=== PATIENT | female | born 1950 | race Caucasian/White ===

== ENCOUNTER 2020-07-01 18:35 | Observation (INO) | payer MEDICARE, OTHER ==
[~2020-07-01] VITALS: Ht 149.9 cm; Wt 89.2 kg
[~2020-07-01 18:35] MED LIST: ACET325C6 PO; ALPR0.25 PO; AMIT25TA PO; BACL-19 PO; ENOX40SY4 SQ; HYDR-3240 PO; LISI-167 PO; MERO1PIG IV; MORP10SY IV; ZONI100C29 PO; [UNRECOGNIZED DRUG - CODE] PO; [UNRECOGNIZED DRUG - OTHER]; [UNRECOGNIZED DRUG - OTHER]; [UNRECOGNIZED DRUG - OTHER]; zofran
[2020-07-01 19:18] LABS: BASOPHILS % (AUTO) 1 % (0-1); EOSINOPHILS % (AUTO) 2 % (1-7); LYMPHOCYTES % (AUTO) 15 % (22-44); MEAN CORPUSCULAR HEMOGLOBIN 24.3 pg (27.0-34.8); MEAN CORPUSCULAR HGB CONC 32.4 g/dL (32.4-35.8); MEAN PLATELET VOLUME 8.4 fL (7.4-10.4); MONOCYTES % (AUTO) 7 % (2-9); NEUTROPHILS % (AUTO) 75 % (42-75); PLATELET COUNT 399 x10^3/uL (130-400); RED BLOOD COUNT 4.82 x10^6/uL (3.82-5.3); RED CELL DISTRIBUTION WIDTH 17.2 % (9.6-15.2)
[2020-07-01 19:24] LABS: ALBUMIN 3.7 g/dL (3.4-5.0); ANION GAP 9 mmol/L (5-15); CALCIUM 8.5 mg/dL (8.5-10.1); CHLORIDE 107 mmol/L (98-107); CREATININE 0.85 mg/dL (0.55-1.02); MD NO
--- NOTE | 2020-07-01 23:40 | NUR ---
pt walked to room 15, awake and alert x4, strong hand liner checker and feet push and pull. drooping to left side of face. able to speak clearly. mild head ache. MD to bedside.
--- NOTE | 2020-07-01 23:52 | NUR ---
piv started and pt tolerated well. pt taken to ct by addiction psychiatrist. iv to left AC flushed easy, no swelling, no redness.
--- NOTE | 2020-07-02 00:02 | NUR ---
pt back from ct. connected to cr monitor. pts at bedside. call light within reach
[2020-07-02] MEDS ORDERED: ACYCLOVIR 400 MG TABLET PO ONE (01:00)
[2020-07-02] MEDS ORDERED: OMNIPAQUE 350 MG/ML, 100ML BOTTLE ONE (01:00)
[2020-07-02] MEDS ORDERED: SODIUM CHLORIDE 0.9% 1,000 ML IV SCH (01:30)
[2020-07-02] MEDS ORDERED: DOCUSATE 100 MG CAPSULE PO PRN (01:30)
--- NOTE | 2020-07-02 02:37 | NUR ---
pt a&ox4. updated to admission. pts to go home for tonight. she remains on cr monitor, and given warm blankets and a pillow for comfort. call light within reach. side rails up x2.
--- NOTE | 2020-07-02 03:35 | NUR ---
ivf started per MD order on emar. 100ml/hr of NS. pt resting comfortably, lights down. on cr monitor. no distress or complaints at this time. call light within reach.
--- NOTE | 2020-07-02 05:02 | NUR ---
pt resting comfortably, no distress at this time. on cr monitor. side rails up x2, and call haddad within reach.
--- NOTE | 2020-07-02 06:42 | NUR ---
pt sleeping comfortably, on cr monitor, and siderails up x2 in [facility]. no distress at this time.
--- NOTE | 2020-07-02 06:58 | NUR ---
report and care given to day shift RN.
--- NOTE | 2020-07-02 07:25 | NUR ---
PT ABLE TO AMBULATE TO BATHROOM STEADILY WITHOUT ASSIST.
[2020-07-02] MEDS ORDERED: ARTIFICIAL TEARS 15 DROP/ML BOTTLE LEFTEYE PRN (07:30)
[2020-07-02] MEDS ORDERED: LISINOPRIL 10 MG TABLET ONE (07:41)
[2020-07-02] MEDS ORDERED: ASPIRIN 81 MG TABLET CHEW ONE (07:41)
[2020-07-02 07:59] LABS: BASOPHILS % (AUTO) 0 % (0-1); EOSINOPHILS % (AUTO) 0 % (1-7); LYMPHOCYTES % (AUTO) 10 % (22-44); MEAN CORPUSCULAR HEMOGLOBIN 24.1 pg (27.0-34.8); MEAN CORPUSCULAR HGB CONC 32.2 g/dL (32.4-35.8); MEAN PLATELET VOLUME 8.5 fL (7.4-10.4); MONOCYTES % (AUTO) 1 % (2-9); NEUTROPHILS % (AUTO) 88 % (42-75); PLATELET COUNT 386 x10^3/uL (130-400); RED BLOOD COUNT 5.02 x10^6/uL (3.82-5.3); RED CELL DISTRIBUTION WIDTH 17.3 % (9.6-15.2)
--- NOTE | 2020-07-02 08:00 | NUR ---
PT ABLE TO DRINK WATER WITHOUT DIFFICULTY. PT COUGHING AFTER CHEWING UP ASA PILLS. PT STATED SHE AFTER CHEWING ASA, SOME WENT DOWN WRONG. PT DRINKING WATER WITHOUT PROBLEM TO EASE COUGHING.
[2020-07-02 08:02] LABS: MD NO
[2020-07-02 08:08] LABS: CHOL/HDL RATIO 3.5; LDL/HDL RATIO 2.1 (0.5-3.0)
--- NOTE | 2020-07-02 08:14 | NUR ---
REPORT GIVEN TO CHARLES SHANKAR.
[2020-07-02 08:40] VITALS: BP 142/75
[2020-07-02] MEDS ORDERED: LISINOPRIL 10 MG TABLET PO SCH (09:00)
[2020-07-02] MEDS ORDERED: ASPIRIN 81 MG TABLET CHEW PO/NG SCH (09:00)
[2020-07-02] MEDS ORDERED: GADOTERATE 10 MMOL/20 ML VIAL ONE (10:00)
[2020-07-02 10:57] LABS: MICROSCOPIC AUTO
[2020-07-02] MEDS ORDERED: ACYCLOVIR 200 MG CAPSULE PO SCH (13:00)
[2020-07-02] MEDS ORDERED: ARTIFICIAL TEARS 15 DROP/ML BOTTLE RIGHTEYE PRN (13:00)
[2020-07-02] MEDS ORDERED: ACETAMINOPHEN 325 MG TABLET PO PRN (13:00)
[2020-07-02] MEDS ORDERED: ACYCLOVIR 400 MG TABLET PO SCH (13:13)
[2020-07-02 14:31] VITALS: BP 129/79
[2020-07-02] MEDS ORDERED: FAMOTIDINE 20 MG TABLET PO PRN (15:30)
[2020-07-02] MEDS ORDERED: DEXAMETHASONE 4 MG TABLET PO SCH (16:00)
[2020-07-02] MEDS ORDERED: METH4TAB6 PO (17:13)
[2020-07-02] MEDS ORDERED: ATOR40TA78 PO (17:13)
[2020-07-02] MEDS ORDERED: ATORVASTATIN 40 MG TABLET PO SCH (21:00)
== END 2020-07-02 18:29 | disposition home or self-care (01) ==
LOC: ED 07-02 00:27 → EDIP 07-02 01:06 → INTOOBSV 07-02 01:06 → 4NE 07-02 08:37
PROVIDERS: ADMIT Family Medicine; ATTEND Family Medicine
DX: D42.0 Neoplasm of uncertain behavior of cerebral meninges (principal); G93.6 Cerebral edema; I67.1 Cerebral aneurysm, nonruptured; G52.9 Cranial nerve disorder, unspecified; R29.810 Facial weakness; R47.1 Dysarthria and anarthria; R29.818 Other symptoms and signs involving the nervous system; I10 Essential (primary) hypertension; M85.80 Other specified disorders of bone density and structure, unspecified site; K21.9 Gastro-esophageal reflux disease without esophagitis; E78.5 Hyperlipidemia, unspecified; E66.9 Obesity, unspecified; Z90.710 Acquired absence of both cervix and uterus; Z79.899 Other long term (current) drug therapy; Z93.3 Colostomy status
CPT/HCPCS: 36415; 70450; 70496; 70498; 70553; 80048; 80061; 81001; 82040; 83036; 85025; 92610; 93005; 96360; 96361; 99285; A9575; G0378; J7030; J7512; Q9967

== ENCOUNTER → 2020-08-04 | Outpatient (CLI) | payer MEDICARE, OTHER ==
[~2020-08-04] MED LIST changes: +ATOR40TA78 PO; +HYDR-1067 PO; -HYDR-3240 PO; +METH4TAB6 PO
[2020-08-04 11:50] LABS: BASOPHILS % (AUTO) 1 % (0-1); EOSINOPHILS % (AUTO) 2 % (1-7); LYMPHOCYTES % (AUTO) 22 % (22-44); MEAN CORPUSCULAR HEMOGLOBIN 24.5 pg (27.0-34.8); MEAN CORPUSCULAR HGB CONC 33.1 g/dL (32.4-35.8); MEAN PLATELET VOLUME 8.5 fL (7.4-10.4); MONOCYTES % (AUTO) 7 % (2-9); NEUTROPHILS % (AUTO) 70 % (42-75); PLATELET COUNT 399 x10^3/uL (130-400); RED BLOOD COUNT 5.01 x10^6/uL (3.82-5.3); RED CELL DISTRIBUTION WIDTH 16.3 % (9.6-15.2)
[2020-08-04 11:52] LABS: MICROSCOPIC AUTO
[2020-08-04 11:57] LABS: MD NO
[2020-08-04 12:02] LABS: ALANINE AMINOTRANSFERASE 20 U/L (12-78); ALBUMIN 4.2 g/dL (3.4-5.0); ANION GAP 4 mmol/L (5-15); CALCIUM 9.5 mg/dL (8.5-10.1); CHLORIDE 106 mmol/L (98-107); INTERNATIONAL NORMALIZED RATIO 0.98 (0.93-1.1); PROTHROMBIN TIME 10.5 Seconds (9.6-11.5)
[2020-08-04 12:04] LABS: ALKALINE PHOSPHATASE 140 U/L (45-117); BILIRUBIN,TOTAL 0.2 mg/dL (0.2-1.0); TOTAL PROTEIN 8.1 g/dL (6.4-8.2)
== END | disposition home or self-care (01) ==
LOC: STAR 09:34
PROVIDERS: ATTEND Neurological Surgery
DX: Z01.818 Encounter for other preprocedural examination (principal); D32.9 Benign neoplasm of meninges, unspecified; Z20.822 Contact with and (suspected) exposure to COVID-19
CPT/HCPCS: 71046; 80053; 81001; 85025; 85610; 85730; 87086; 87186; 87635

== ENCOUNTER → 2020-08-08 | Outpatient (CLI) | payer MEDICARE, OTHER ==
[~2020-08-08] MED LIST changes: +GADOTERATE 7.5 MMOL/15 ML VIAL ONE; +LEVE100S6 PO
== END | disposition home or self-care (01) ==
LOC: RAD 08:16
PROVIDERS: ATTEND Neurological Surgery
DX: G93.89 Other specified disorders of brain (principal); D32.9 Benign neoplasm of meninges, unspecified
CPT/HCPCS: 70552; A9575

== ENCOUNTER 2020-09-16 21:23 | Emergency (ER) | payer MEDICARE, OTHER ==
[~2020-09-16] VITALS: Ht 157.5 cm; Wt 70.7 kg
[~2020-09-16 21:23] MED LIST changes: +FAMO-79 PO; -GADOTERATE 7.5 MMOL/15 ML VIAL ONE; +LEVE500T53 PO; +OXYC-302 PO
--- NOTE | 2020-09-16 21:43 | NUR ---
Pt to ER with C/O abd pain. Pt states hx of colostmy that was removed 1yr ago. Pt thinks she has a hernia. Pt with pain to left abd. Pt c/o flank pain. Pt with no N/V. Pt denies bloody stools. States having normal BM. Pt in gown, Warm blanket given. UA provided. Will monitor.
[2020-09-16] MEDS ORDERED: OMNIPAQUE 350 MG/ML, 100ML BOTTLE ONE (21:49)
[2020-09-16] MEDS ORDERED: HYDROmorphone 1 MG/ML, 1ML INJ ONE (21:57)
[2020-09-16] MEDS ORDERED: ONDANSETRON 2MG/ML, 2ML ONE (21:57)
[2020-09-16] MEDS ORDERED: ONDANSETRON 2MG/ML, 2ML IVPush ONE (22:00)
[2020-09-16] MEDS ORDERED: HYDROmorphone 1 MG/ML, 1ML INJ IV ONE (22:00)
[2020-09-16] MEDS ORDERED: SODIUM CHLORIDE FLUSH 10ML SYR IVF ONE (22:00)
[2020-09-16 22:01] LABS: MICROSCOPIC AUTO
--- NOTE | 2020-09-16 22:11 | NUR ---
IV placed, UA sent. Blood sent. Pt medicated per order. NC placed for RA 90% after meds. 2L with pt in mid 90's. Family at bedside. Will monitor.
[2020-09-16 22:19] LABS: BASOPHILS % (AUTO) 1 % (0-1); EOSINOPHILS % (AUTO) 2 % (1-7); LYMPHOCYTES % (AUTO) 16 % (22-44); MEAN CORPUSCULAR HEMOGLOBIN 24.1 pg (27.0-34.8); MEAN CORPUSCULAR HGB CONC 33.1 g/dL (32.4-35.8); MEAN PLATELET VOLUME 8.6 fL (7.4-10.4); MONOCYTES % (AUTO) 9 % (2-9); NEUTROPHILS % (AUTO) 73 % (42-75); PLATELET COUNT 317 x10^3/uL (130-400); RED BLOOD COUNT 4.45 x10^6/uL (3.82-5.3); RED CELL DISTRIBUTION WIDTH 16.8 % (9.6-15.2)
[2020-09-16 22:20] LABS: MD NO
[2020-09-16 22:29] LABS: ALANINE AMINOTRANSFERASE 22 U/L (12-78); ALBUMIN 3.8 g/dL (3.4-5.0); ANION GAP 8 mmol/L (5-15); CALCIUM 8.6 mg/dL (8.5-10.1); CHLORIDE 106 mmol/L (98-107); CREATININE 0.59 mg/dL (0.55-1.02)
[2020-09-16 22:31] LABS: ALKALINE PHOSPHATASE 112 U/L (45-117); BILIRUBIN,TOTAL 0.2 mg/dL (0.2-1.0); TOTAL PROTEIN 7.2 g/dL (6.4-8.2)
--- NOTE | 2020-09-16 23:14 | NUR ---
Pt calm in bed. Pain improved. Pt resting comfortably in bed. Waiting on CT. Will monitor. at bedside. Call light in reach.
--- NOTE | 2020-09-16 23:16 | NUR ---
PT TO CT AT THIS TIME
[2020-09-17 00:30] VITALS: BP 133/66
--- NOTE | 2020-09-17 00:32 | NUR ---
Patient/ spouse given discharge instructions and they have confirmed that they understand the instructions. Patient ambulatory with steady gait.
== END 2020-09-17 00:37 | disposition home or self-care (01) ==
LOC: ED 23:32
DX: R10.84 Generalized abdominal pain (principal); M54.5 Low back pain; I10 Essential (primary) hypertension
CPT/HCPCS: 36415; 74177; 80053; 81001; 83690; 85025; 87086; 96374; 96375; 99285; J1170; J2405; Q9967

== ENCOUNTER → 2020-09-18 | Outpatient (CLI) | payer MEDICARE, OTHER | END | disposition home or self-care (01) | LOC: CFH 12:22 | PROVIDERS: ATTEND Physician Assistant | DX: D32.9 Benign neoplasm of meninges, unspecified (principal) | CPT/HCPCS: 70450 ==

== ENCOUNTER → 2020-12-13 | Outpatient (CLI) | payer MEDICARE, OTHER ==
[~2020-12-13] MED LIST changes: -HYDR-1067 PO; +HYDR-2214 PO; +OMNIPAQUE 350 MG/ML, 100ML BOTTLE ONE
[2020-12-13 09:30] LABS: CREATININE 0.73 mg/dL (0.55-1.02)
== END | disposition home or self-care (01) ==
LOC: RAD 08:46
PROVIDERS: ATTEND Surgery
DX: K43.2 Incisional hernia without obstruction or gangrene (principal)
CPT/HCPCS: 36415; 74177; 82565; Q9967

== ENCOUNTER 2021-02-02 09:03 | Outpatient (CLI) | payer MEDICARE, OTHER ==
[2021-02-02] MEDS ORDERED: GADOTERATE 10 MMOL/20 ML VIAL ONE (12:00)
== END 2021-02-02 23:59 | disposition home or self-care (01) ==
LOC: RAD 09:03
PROVIDERS: ATTEND Neurological Surgery
DX: D32.0 Benign neoplasm of cerebral meninges (principal); G93.0 Cerebral cysts
CPT/HCPCS: 70553; A9575

== ENCOUNTER → 2021-02-02 | Outpatient (CLI) | payer MEDICARE, OTHER ==
[~2021-02-02] MED LIST changes: -OMNIPAQUE 350 MG/ML, 100ML BOTTLE ONE
[2021-02-02 10:14] LABS: BASOPHILS % (AUTO) 1 % (0-1); EOSINOPHILS % (AUTO) 4 % (1-7); LYMPHOCYTES % (AUTO) 22 % (22-44); MEAN CORPUSCULAR HEMOGLOBIN 23.7 pg (27.0-34.8); MEAN CORPUSCULAR HGB CONC 32.6 g/dL (32.4-35.8); MEAN PLATELET VOLUME 8.8 fL (7.4-10.4); MONOCYTES % (AUTO) 7 % (2-9); NEUTROPHILS % (AUTO) 66 % (42-75); PLATELET COUNT 281 x10^3/uL (130-400); RED BLOOD COUNT 4.69 x10^6/uL (3.82-5.3); RED CELL DISTRIBUTION WIDTH 16.6 % (9.6-15.2)
[2021-02-02 10:16] LABS: MICROSCOPIC AUTO
[2021-02-02 10:24] LABS: INTERNATIONAL NORMALIZED RATIO 0.96 (0.93-1.1); PROTHROMBIN TIME 10.3 Seconds (9.6-11.5)
[2021-02-02 10:25] LABS: ALBUMIN 3.5 g/dL (3.4-5.0); ANION GAP 5 mmol/L (5-15); CALCIUM 8.8 mg/dL (8.5-10.1); CHLORIDE 108 mmol/L (98-107)
[2021-02-02 10:28] LABS: ALANINE AMINOTRANSFERASE 20 U/L (12-78); ALKALINE PHOSPHATASE 95 U/L (45-117); BILIRUBIN,TOTAL 0.3 mg/dL (0.2-1.0); CREATININE 0.83 mg/dL (0.55-1.02); TOTAL PROTEIN 7.3 g/dL (6.4-8.2)
== END | disposition home or self-care (01) ==
LOC: STAR 08:59
PROVIDERS: ATTEND Neurological Surgery
DX: Z01.818 Encounter for other preprocedural examination (principal); D32.0 Benign neoplasm of cerebral meninges
CPT/HCPCS: 36415; 80053; 81001; 85025; 85610; 85730; 87077; 87086; 87186; 93005

== ENCOUNTER 2021-02-08 05:22 | Inpatient (IN) | payer MEDICARE, OTHER ==
[~2021-02-08] VITALS: Ht 139.7 cm; Wt 73.5 kg
[2021-02-08 05:42] VITALS: BP 183/70
[2021-02-08] MEDS ORDERED: LACTATED RINGERS 1,000 ML IV SCH (06:00)
[2021-02-08] MEDS ORDERED: CHLORHEXIDINE 15 ML UDC PO ONE (06:00)
[2021-02-08] MEDS ORDERED: GENTAMICIN 80 MG/2 ML ONE (06:09)
[2021-02-08] MEDS ORDERED: BUPIVACAINE/PF 0.5% ONE (06:09)
[2021-02-08] MEDS ORDERED: MANNITOL PMX 20% 500 ML ONE (06:10)
[2021-02-08] MEDS ORDERED: THROMBIN 20,000 UNIT VIAL TP ONE ×2 (06:10→10:05)
[2021-02-08] MEDS ORDERED: EPINEPHRINE 1 MG/ML, 1ML ONE (06:10)
[2021-02-08] MEDS ORDERED: VANCOMYCIN 1,000 MG ONE (06:10)
[2021-02-08] MEDS ORDERED: PROP20TA PO (06:19)
[2021-02-08] MEDS ORDERED: TRAZ-175 PO (06:19)
[2021-02-08] MEDS ORDERED: FENTANYL PF 250 MCG/5ML ONE ×2 (06:52→08:20)
[2021-02-08] MEDS ORDERED: MIDAZOLAM 1 MG/ML, 2ML ONE (06:52)
[2021-02-08] MEDS ORDERED: LEVETIRACETAM 1,000 MG in SODIUM CHLORIDE 0.9% 100 ML IV ONE (07:00)
[2021-02-08] MEDS ORDERED: ROCURONIUM 10MG/ML,5ML ONE ×2 (07:27)
[2021-02-08] MEDS ORDERED: SUCCINYLCHOLINE 20 MG/ML, 10ML ONE (07:27)
[2021-02-08] MEDS ORDERED: DEXAMETHASONE 4 MG/ML, 5ML ONE (07:27)
[2021-02-08] MEDS ORDERED: PROPOFOL 10 MG/ML, 20ML ONE ×2 (07:27)
[2021-02-08] MEDS ORDERED: CEFAZOLIN 1,000 MG ONE (07:27)
[2021-02-08] MEDS ORDERED: ONDANSETRON 2MG/ML, 2ML ONE (07:27)
[2021-02-08] MEDS ORDERED: GENTAMICIN 80 MG/2 ML IM ONE (10:04)
[2021-02-08] MEDS ORDERED: VANCOMYCIN 1,000 MG IM ONE (10:04)
[2021-02-08] MEDS ORDERED: BUPIVACAINE/PF-EPI 0.5% 1:200K INFIL ONE (10:04)
[2021-02-08] MEDS ORDERED: ONDANSETRON 2MG/ML, 2ML IVPush PRN (11:00)
[2021-02-08] MEDS ORDERED: HYDROmorphone 1 MG/ML, 1ML INJ IV PRN (11:00)
[2021-02-08] MEDS ORDERED: DIAZEPAM 5 MG/ML, 2ML IV PRN ×2 (11:00)
[2021-02-08] MEDS ORDERED: ALBUTEROL SULFATE 2.5 MG/3 ML NPPB PRN (11:00)
[2021-02-08] MEDS ORDERED: MEPERIDINE/PF 25MG/0.5ML IVPush PRN (11:00)
[2021-02-08] MEDS ORDERED: hydrALAzine 20 MG/ML, 1ML IV PRN (11:00)
[2021-02-08] MEDS ORDERED: KETOROLAC 30 MG/1 ML IV PRN (11:00)
[2021-02-08] MEDS ORDERED: PROMETHAZINE 25 MG/ML, 1ML IV PRN (11:00)
[2021-02-08] MEDS ORDERED: LABETALOL 5MG/ML, 20ML IV PRN ×2 (11:00→13:00)
[2021-02-08] MEDS ORDERED: METOCLOPRAMIDE 5 MG/ML, 2ML IV PRN (11:00)
[2021-02-08] MEDS ORDERED: hydrALAzine 20 MG/ML, 1ML ONE (11:02)
[2021-02-08] MEDS ORDERED: LABETALOL 5MG/ML, 20ML ONE (11:10)
[2021-02-08] MEDS ORDERED: FENTANYL PF 100 MCG/2ML ONE ×2 (11:11→12:02)
[2021-02-08] MEDS: FENTANYL PF 100 MCG/2ML IV PRN ×2 (11:17→11:35)
[2021-02-08] MEDS ORDERED: BISACODYL 10 MG SUPP PR PRN (13:00)
[2021-02-08] MEDS: DEXAMETHASONE 4 MG/ML, 1ML IVPush SCH ×2 (13:00→20:26)
[2021-02-08] MEDS ORDERED: ACETAMINOPHEN 650 MG SUPP PR PRN (13:00)
[2021-02-08] MEDS ORDERED: MAGNESIUM HYDROXIDE 8%, 30ML UDC PO PRN (13:00)
[2021-02-08] MEDS ORDERED: TRAZODONE 100MG TABLET PO PRN (13:00)
[2021-02-08] MEDS ORDERED: ACETAMINOPHEN 325 MG TABLET PO PRN (13:00)
[2021-02-08] MEDS: morphine SULFATE 10 MG/ML, 1ML IV PRN ×3 (13:01→19:22)
[2021-02-08] MEDS: DEXAMETHASONE 4 MG TABLET PO SCH ×2 (13:57→20:25)
[2021-02-08] MEDS: CEFAZOLIN PMX 1GM/50ML 50 ML IVPB SCH ×2 (13:59→20:26)
[2021-02-08] MEDS: OXYcodone/APAP 5/325MG TABLET PO PRN (13:59)
[2021-02-08] MEDS: ENALAPRILAT 1.25 MG/ML, 2ML IV SCH ×3 (13:59→20:26)
[2021-02-08] MEDS ORDERED: HYDROmorphone 1 MG/ML, 1ML INJ IM PRN (18:00)
[2021-02-08] MEDS: ATORVASTATIN 40 MG TABLET PO SCH (20:25)
[2021-02-08] MEDS: OXYcodone 5 MG/5 ML ORAL.SOL UDC PO PRN (23:06)
[2021-02-09] MEDS: DEXAMETHASONE 4 MG/ML, 1ML IVPush SCH (02:42)
[2021-02-09] MEDS: ENALAPRILAT 1.25 MG/ML, 2ML IV SCH ×6 (02:43→21:00)
[2021-02-09] MEDS: DEXAMETHASONE 4 MG TABLET PO SCH ×4 (02:57→22:14)
[2021-02-09] MEDS: OXYcodone 5 MG/5 ML ORAL.SOL UDC PO PRN (05:13)
[2021-02-09] MEDS: CEFAZOLIN PMX 1GM/50ML 50 ML IVPB SCH ×3 (05:13→22:14)
[2021-02-09 06:09] LABS: BASOPHILS % (AUTO) 0 % (0-1); EOSINOPHILS % (AUTO) 0 % (1-7); LYMPHOCYTES % (AUTO) 5 % (22-44); MEAN CORPUSCULAR HEMOGLOBIN 23.3 pg (27.0-34.8); MEAN CORPUSCULAR HGB CONC 32.1 g/dL (32.4-35.8); MEAN PLATELET VOLUME 9.2 fL (7.4-10.4); MONOCYTES % (AUTO) 5 % (2-9); NEUTROPHILS % (AUTO) 90 % (42-75); PLATELET COUNT 260 x10^3/uL (130-400); RED BLOOD COUNT 3.99 x10^6/uL (3.82-5.3)
[2021-02-09 06:59] LABS: ANION GAP 3 mmol/L (5-15); CALCIUM 8.2 mg/dL (8.5-10.1); CHLORIDE 106 mmol/L (98-107); CREATININE 0.61 mg/dL (0.55-1.02)
[2021-02-09] MEDS: PROPRANOLOL 20 MG TABLET PO SCH (08:09)
[2021-02-09] MEDS: SENNA/DOCUSATE TABLET PO SCH (09:00)
[2021-02-09] MEDS: OXYcodone/APAP 5/325MG TABLET PO PRN ×2 (10:49→22:15)
[2021-02-09] MEDS: ONDANSETRON 2MG/ML, 2ML IV PRN (12:21)
[2021-02-09 12:41] VITALS: BP 162/76
[2021-02-09] MEDS ORDERED: ENALAPRILAT 1.25 MG/ML, 1ML ONE ×2 (12:44→20:54)
[2021-02-09] MEDS: morphine SULFATE 10 MG/ML, 1ML IV PRN ×2 (14:43→19:20)
[2021-02-09 16:30] VITALS: BP 146/75
[2021-02-09 20:32] VITALS: BP 149/77
[2021-02-09] MEDS: ATORVASTATIN 40 MG TABLET PO SCH (22:14)
[2021-02-09] MEDS: DIPHENHYDRAMINE 25 MG CAPSULE PO PRN (22:15)
[2021-02-09] MEDS: LEVETIRACETAM 500 MG TABLET PO SCH (22:15)
[2021-02-10 02:00] VITALS: BP 137/76
[2021-02-10] MEDS: ENALAPRILAT 1.25 MG/ML, 2ML IV SCH ×6 (02:00→21:50)
[2021-02-10 05:09] LABS: BASOPHILS % (AUTO) 0 % (0-1); EOSINOPHILS % (AUTO) 0 % (1-7); LYMPHOCYTES % (AUTO) 5 % (22-44); MEAN CORPUSCULAR HEMOGLOBIN 23.6 pg (27.0-34.8); MEAN CORPUSCULAR HGB CONC 32.7 g/dL (32.4-35.8); MONOCYTES % (AUTO) 2 % (2-9); NEUTROPHILS % (AUTO) 93 % (42-75); PLATELET COUNT 253 x10^3/uL (130-400); RED BLOOD COUNT 4.07 x10^6/uL (3.82-5.3); RED CELL DISTRIBUTION WIDTH 17.3 % (9.6-15.2)
[2021-02-10 05:25] LABS: ANION GAP 6 mmol/L (5-15); CHLORIDE 105 mmol/L (98-107); CREATININE 0.53 mg/dL (0.55-1.02)
[2021-02-10] MEDS: CEFAZOLIN PMX 1GM/50ML 50 ML IVPB SCH ×3 (06:11→21:48)
[2021-02-10 08:22] VITALS: BP 130/69
[2021-02-10] MEDS ORDERED: ENALAPRILAT 1.25 MG/ML, 1ML ONE ×2 (08:50→13:22)
[2021-02-10 08:58] VITALS: BP 131/71
[2021-02-10] MEDS: ONDANSETRON 2MG/ML, 2ML IV PRN (08:59)
[2021-02-10] MEDS: DEXAMETHASONE 4 MG TABLET PO SCH ×2 (09:00→21:50)
[2021-02-10] MEDS: LEVETIRACETAM 500 MG TABLET PO SCH ×2 (09:01→21:48)
[2021-02-10] MEDS: PROPRANOLOL 20 MG TABLET PO SCH (09:01)
[2021-02-10] MEDS: SENNA/DOCUSATE TABLET PO SCH (09:01)
[2021-02-10] MEDS: OXYcodone/APAP 5/325MG TABLET PO PRN ×3 (11:28→21:49)
[2021-02-10 12:59] VITALS: BP 111/60
[2021-02-10 17:23] VITALS: BP 137/69
[2021-02-10 19:27] VITALS: BP 154/75
[2021-02-10] MEDS: DIPHENHYDRAMINE 25 MG CAPSULE PO PRN (21:49)
[2021-02-10] MEDS: ATORVASTATIN 40 MG TABLET PO SCH (21:49)
[2021-02-11] MEDS: ENALAPRILAT 1.25 MG/ML, 2ML IV SCH ×6 (01:00→21:00)
[2021-02-11 01:23] VITALS: BP 122/68
[2021-02-11] MEDS: CEFAZOLIN PMX 1GM/50ML 50 ML IVPB SCH ×3 (05:08→20:44)
[2021-02-11] MEDS: DIPHENHYDRAMINE 25 MG CAPSULE PO PRN (05:15)
[2021-02-11] MEDS: OXYcodone/APAP 5/325MG TABLET PO PRN ×2 (05:21→20:41)
[2021-02-11 05:55] LABS: ANION GAP 7 mmol/L (5-15); CALCIUM 7.9 mg/dL (8.5-10.1); CHLORIDE 106 mmol/L (98-107); CREATININE 0.66 mg/dL (0.55-1.02)
[2021-02-11 06:02] LABS: BASOPHILS % (AUTO) 0 % (0-1); EOSINOPHILS % (AUTO) 0 % (1-7); LYMPHOCYTES % (AUTO) 7 % (22-44); MEAN CORPUSCULAR HEMOGLOBIN 23.1 pg (27.0-34.8); MEAN CORPUSCULAR HGB CONC 31.9 g/dL (32.4-35.8); MEAN PLATELET VOLUME 9.5 fL (7.4-10.4); MONOCYTES % (AUTO) 4 % (2-9); NEUTROPHILS % (AUTO) 90 % (42-75); PLATELET COUNT 285 x10^3/uL (130-400)
[2021-02-11 08:00] VITALS: BP 128/61
[2021-02-11] MEDS: DEXAMETHASONE 4 MG TABLET PO SCH ×2 (09:00→20:41)
[2021-02-11] MEDS: SENNA/DOCUSATE TABLET PO SCH (09:24)
[2021-02-11] MEDS: PROPRANOLOL 20 MG TABLET PO SCH (09:25)
[2021-02-11] MEDS: LEVETIRACETAM 500 MG TABLET PO SCH ×2 (09:25→20:40)
[2021-02-11 13:55] VITALS: BP 144/72
[2021-02-11] MEDS: ONDANSETRON 2MG/ML, 2ML IV PRN (16:12)
[2021-02-11] MEDS: ATORVASTATIN 40 MG TABLET PO SCH (20:40)
[2021-02-11 20:48] VITALS: BP 139/54
[2021-02-12 00:39] VITALS: BP 132/63
[2021-02-12] MEDS: ENALAPRILAT 1.25 MG/ML, 2ML IV SCH ×3 (00:39→09:00)
[2021-02-12] MEDS: OXYcodone/APAP 5/325MG TABLET PO PRN ×2 (04:08→10:05)
[2021-02-12] MEDS: CEFAZOLIN PMX 1GM/50ML 50 ML IVPB SCH (05:07)
[2021-02-12 05:10] VITALS: BP 139/73
[2021-02-12 05:21] LABS: BASOPHILS % (AUTO) 0 % (0-1); EOSINOPHILS % (AUTO) 0 % (1-7); LYMPHOCYTES % (AUTO) 8 % (22-44); MEAN PLATELET VOLUME 9.3 fL (7.4-10.4); MONOCYTES % (AUTO) 6 % (2-9); NEUTROPHILS % (AUTO) 86 % (42-75); PLATELET COUNT 293 x10^3/uL (130-400); RED BLOOD COUNT 4.18 x10^6/uL (3.82-5.3); RED CELL DISTRIBUTION WIDTH 17.1 % (9.6-15.2)
[2021-02-12 05:33] LABS: ANION GAP 7 mmol/L (5-15); CALCIUM 7.8 mg/dL (8.5-10.1); CHLORIDE 104 mmol/L (98-107); CREATININE 0.66 mg/dL (0.55-1.02)
[2021-02-12] MEDS: SENNA/DOCUSATE TABLET PO SCH (09:00)
[2021-02-12] MEDS ORDERED: ENALAPRILAT 1.25 MG/ML, 1ML ONE (09:59)
[2021-02-12] MEDS: LEVETIRACETAM 500 MG TABLET PO SCH (10:05)
[2021-02-12] MEDS: DEXAMETHASONE 4 MG TABLET PO SCH (10:06)
[2021-02-12] MEDS: PROPRANOLOL 20 MG TABLET PO SCH (10:07)
[2021-02-12 12:35] VITALS: BP 132/60
[2021-02-12] MEDS ORDERED: DEXAMETHASONE 4 MG TABLET PO SCH (21:00)
== END 2021-02-12 14:23 | disposition home health service (06) | DRG 27 ==
LOC: ORIP 05:22 → CCU 12:22 → 4NE 02-09 11:58
PROVIDERS: ADMIT Neurological Surgery; ATTEND Neurological Surgery
PROC: 0NU70JZ Supplement Occipital Bone with Synthetic Substitute, Open Approach (ICD-10-PCS; 2021-02-08)
PROC: 0NU Head and Facial Bones, Supplement (ICD-10-PCS; 2021-02-08)
PROC: 00B20ZZ Excision of Dura Mater, Open Approach (ICD-10-PCS; 2021-02-08)
PROC: 00U10KZ Supplement Cerebral Meninges with Nonautologous Tissue Substitute, Open Approach (ICD-10-PCS; principal; 2021-02-08 07:00)
DX: D32.9 Benign neoplasm of meninges, unspecified (principal)
CPT/HCPCS: 36415; 70450; 70552; 80048; 85025; 86850; 86870; 86900; 86922; 86923; 87081; 88307; 88331; C1713; G0378; J0171; J0690; J1100; J1953; J2250; J2405; J2704; J3010; J3370; C1781; J0330; J0360; J1580; J2270; J7120; Q0163